=== PATIENT | male | born 2000 | race Two or more races ===

== ENCOUNTER 2024-12-08 16:04 | Emergency (ER) | payer MEDICAID, OTHER ==
[~2024-12-08] VITALS: Ht 167.6 cm; Wt 75.0 kg
--- NOTE | 2024-12-08 16:40 | DVH ---
XY R HAND 3 VIEW XRAY, INDICATION: Crushed injury to thumb TECHNICAL DATA: Frontal, oblique and lateral views were obtained of the right hand. COMPARISON: None FINDINGS: No fracture is identified. Joint spaces are maintained. Alignment is anatomic. Soft tissues are withi n normal limits. IMPRESSION: No acute fracture or dislocation of the right hand.
--- NOTE | 2024-12-08 16:57 | ED.PDOC ---
Musculoskeletal HPI Comments This is a pleasant 24-year-old male with a MHx that presents with a chief complaint of right thumb pain. Approximately 1 hour ago prior to the visit, patient has sustained an injury to the right thumb while at home. The injury occurred with the patient placed his hand in a awning resulting in a laceration and significant pain. The pain is localized to the proximal area of the right thumb specifically of the elbow report. Pain is rated as moderate in his aggravated with movement. Patient is left-hand dominant. Denies numbness tingling. Last tetanus shot was six years ago Chief Complaint: Upper Extremity Time Seen by MD: 16:13 Reviewed Notes: Nurses Notes, Medications, Allergies Allergies: Coded Allergies: Prochlorperazine (Verified Allergy, Intermediate, facial droop, 12/08/24) Vancomycin (Verified Allergy, Intermediate, hives, 12/08/24) Information Source: Patient Mode of Arrival: Ambulatory Past Medical History PAST MEDICAL HISTORY: Denies Surgical History: Denies all surgeries Family History Family History: Reviewed,noncontributory to illness Social History Smoker: Non-Smoker Alcohol: Denies ETOH Use Drugs: Denies Drug Use All Other Systems: Reviewed and Negative (Per HPI) Physical Exam General Appearance: No Apparent Distress, Normal HEENT: Head (The head is normocephalic atraumatic), Normal ENT Inspection, Pharynx Normal, TMs Normal Neck: Full Range of Motion, Non-Tender, Normal, Normal Inspection Respiratory: Chest Non-Tender, Lungs Clear, No Accessory Muscle Use, No Respiratory Distress, Normal Breath Sounds Cardiovascular: No Edema, No JVD, No Murmur, No Gallop, Normal Peripheral Pulses, Regular Rate/Rhythm Breast Exam: Deferred Gastrointestinal: No Organomegaly, Non Tender, No Pulsatile Mass, Normal Bowel Sounds, Soft Genitalia: Deferred Pelvic: Deferred Rectal: Deferred Extremities: No calf tenderness, Normal capillary refill, Normal inspection, Normal range of motion, Non-tender, No pedal edema Musculoskeletal : Location: Right Extremity Location: Thumb (No gross abnormality to the overall hand. There is a 1 cm laceration to the dorsal aspect of the right MCP. No active bleeding. No foreign bodies. No surrounding erythema. Full range of motion. Neurovascular sensation is intact and cap refill is less than three) Apperance: Normal Neurologic: Alert, application trainer II-XII nml as Tested, No Motor Deficits, Normal Affect, Normal Mood, No Sensory Deficits Cerebellar Function: Normal Reflexes: Normal Skin: Dry, Normal Color, Warm Lymphatic: No Adenopathy Was a procedure done? Was a procedure done?: No Differential Diagnosis EXT Differential Diagnosis: Other X-Ray, Labs, Meds, VS Vital Signs Date Time Temp Pulse Resp B/P (MAP) Pulse Ox O2 Delivery O2 Flow Rate FiO2 12/08/24 17:06 68 16 98 Room Air 12/08/24 17:06 97.9 82 16 122/68 (86) 99 97.9 12/08/24 16:11 98.0 73 16 132/87 97 98.0 Current Medications Medications (Trade) Dose Ordered Sig/Xander Route Start Time Stop Time Status Last Admin Neomycin/ Polymyxin/ Bacitracin (Triple Antibiotic) 1 applic ONCE ONCE TOP 12/08/24 17:00 12/08/24 17:01 DC 12/08/24 17:03 X-Ray, Labs, Meds, VS Comment Laceration and abrasion to the right thumb. 1 cm laceration to the dorsal aspect of the right MCP. No active bleeding. No surrounding erythema no foreign bodies. Full range of motion. Neurovascular sensation is intact. Cap refill is less than three and radial pulses are 2+. No fracture on x-ray. Pain rated 6/10. Tetanus shot was updated. No antibiotics still nor indicated at this time. We will prescribe ibuprofen 600-800 mg every 6-8 hours for pain. Instructed patient to apply topical antibiotic ointment for wound healing. Strict return precautions were advised and patient verbalized understanding to plan Time of 1ST Reevaluation: 16:42 Reevaluation 1ST: Improved Patient Education/Counseling: Diagnosis, Treatment Family Education/Counseling: Diagnosis, Treatment Departure 1 Departure Time of Disposition: 16:56 Impression: Primary Impression: Sprain of right thumb Qualified Codes: S63.641A - Sprain of metacarpophalangeal joint of right thumb, initial encounter Disposition: HOME / SELF CARE / HOMELESS Condition: Stable Discharged With: Self Critical Care Note Critical Care Time?: No Stability Stability form required: No Heart Score Heart Score: Heart Score Response (Comments) Value History N/A 0 EKG N/A 0 Age N/A 0 Risk Factors N/A 0 Troponin N/A 0 Total 0 MADELINE GHOTRA NP Dec 08, 2024 16:57
[2024-12-08] MEDS: NEOMYCIN-BACITRACIN-POLYM UNITDOSE PKG TOP OINT TOP ONE (17:03)
[2024-12-08 17:06] VITALS: BP 122/68; PULSE 68; RESP 16; TEMP 97.9; O2SAT 98
== END 2024-12-08 17:09 | disposition home or self-care (01) ==
LOC: ER 16:04
DX: S63.641A Sprain of metacarpophalangeal joint of right thumb, initial encounter (principal); Z88.1 Allergy status to other antibiotic agents; X58.XXXA Exposure to other specified factors, initial encounter; Y93.89 Activity, other specified; Y92.89 Other specified places as the place of occurrence of the external cause; Y99.8 Other external cause status
CPT/HCPCS: 73130